=== PATIENT | male | born 1955 | race American Indian/Alaskan Native ===

== ENCOUNTER 2021-01-04 03:02 | Emergency (ER) | payer SELFPAY ==
--- NOTE | 2021-01-04 03:41 | Emergency Department Report ---
HPI - General Chief Complaint: Altered Mental Status Time Seen by Provider: 01/04/21 03:19 - HPI HPI: Room 2 The patient is a 65-year-old male present with a chief complaint of altered mental status. Per EMS the patient's roommate states that he left their home last Monday and came back last night "acting different." There are no specifics given surrounding "acting different" but the patient is very slow to respond during the history. Patient denies pain of any type or shortness of breath. Patient states he had an episode of nausea vomiting yesterday after eating ice cream. The patient acknowledges his roommate told him he was not acting like his normal self but is unable to give any specifics. The patient is oriented x3 but slow to respond ED Past Medical Hx - Past Medical History Previous Medical History?: No Additional medical history: per EMS - Surgical History Past Surgical History?: No Additional Surgical History: per EMS ED Review of Systems ROS: Stated complaint: AMS Other details as noted in HPI Constitutional: no symptoms reported Eyes: denies: eye pain ENT: denies: throat pain Respiratory: denies: shortness of breath Cardiovascular: denies: chest pain Endocrine: no symptoms reported Gastrointestinal: nausea, vomiting. denies: abdominal pain Genitourinary: denies: dysuria Musculoskeletal: denies: back pain Neurological: denies: headache Physical Exam - Physical Exam Vital Signs: Vital Signs 01/04/21 03:21 Temperature 99.1 F Pulse Rate 66 Respiratory 17 Rate Blood Pressure 139/85 [Left] O2 Sat by Pulse 98 Oximetry Physical Exam: GENERAL: The patient is well-developed well-nourished male lying on stretcher slow to respond but not appearing to be in acute distress. [] HEENT: Normocephalic. Atraumatic. Extraocular motions are intact. Patient has moist mucous membranes. Pupils 3 to 2 mm bilaterally NECK: Supple. Trachea midline CHEST/LUNGS: Clear to auscultation. There is no respiratory distress noted. HEART/CARDIOVASCULAR: Regular. There is no tachycardia. There is no gallop rub or murmur. ABDOMEN: Abdomen is soft, nontender. Patient has normal bowel sounds. There is no abdominal distention. SKIN: There is no rash. There is no edema. There is no diaphoresis. NEURO: The patient is awake and oriented but slow to respond. The patient is cooperative. The patient has no focal neurologic deficits. The patient has normal speech. Cranial nerves II through XII grossly intact. MUSCULOSKELETAL: There is no evidence of acute injury. ED Course Vital Signs 01/04/21 03:21 Temperature 99.1 F Pulse Rate 66 Respiratory 17 Rate Blood Pressure 139/85 [Left] O2 Sat by Pulse 98 Oximetry - Consultations Consultation #1: 01/04/21 03:39 Attempted to contact the patient's roommate at [phone] for collateral information however there was no answer. Voicemail was left requesting the roommate to call back Consultation #2: 01/04/21 04:02 Case discussed with neurosurgeon Dr. Obrien- recommends transfer Consultation #3: 01/04/21 04:15 [facility] transfer line called 01/04/21 04:32 Case discussed with [facility] neurosurgeon and neuro home housekeeper-currently no beds available can place patient on wait list. 01/04/21 04:34 [facility] transfer line called-no beds available 01/04/21 04:34 [facility] transfer line called 01/04/21 05:03 Case discussed with [facility] neuro home housekeeper Dr. Wang-we will accept patient in transfer. Recommends keeping systolic blood pressure less than 160 ED Medical Decision Making - Lab Data Result diagrams: 01/04/21 04:06 01/04/21 04:06 Laboratory Tests 01/04/21 01/04/21 01/04/21 04:06 04:06 04:06 WBC 8.9 RBC 5.28 H Hgb 14.9 Hct 45.7 H MCV 87 MCH 28 MCHC 33 RDW 13.2 Plt Count 132 L Lymph % (Auto) 10.4 L Page % (Auto) 5.2 Eos % (Auto) 0.0 Baso % (Auto) 0.1 Lymph # (Auto) 0.9 L Page # (Auto) 0.5 Eos # (Auto) 0.0 Baso # (Auto) 0.0 Seg Neutrophils % 84.3 H Seg Neutrophils # 7.5 PT 13.3 INR 1.03 Sodium 138 Potassium 3.9 Chloride 98.4 Carbon Dioxide 29 Anion Gap 15 BUN 13 Creatinine 0.8 Estimated GFR > 60 BUN/Creatinine Ratio 16 Glucose 114 H Calcium 9.2 Magnesium 1.80 Total Bilirubin 0.60 AST 30 ALT 21 Alkaline Phosphatase 108 Ammonia Total Creatine Kinase 167 CK-MB (CK-2) 3.9 CK-MB (CK-2) Rel Index 2.3 Troponin T < 0.010 Total Protein 8.1 Albumin 4.0 Albumin/Globulin Ratio 1.0 Lipase 38 TSH Free T4 Plasma/Serum Alcohol 01/04/21 01/04/21 01/04/21 04:06 04:06 04:06 WBC RBC Hgb Hct MCV MCH MCHC RDW Plt Count Lymph % (Auto) Page % (Auto) Eos % (Auto) Baso % (Auto) Lymph # (Auto) Page # (Auto) Eos # (Auto) Baso # (Auto) Seg Neutrophils % Seg Neutrophils # PT INR Sodium Potassium Chloride Carbon Dioxide Anion Gap BUN Creatinine Estimated GFR BUN/Creatinine Ratio Glucose Calcium Magnesium Total Bilirubin AST ALT Alkaline Phosphatase Ammonia 22.0 L Total Creatine Kinase CK-MB (CK-2) CK-MB (CK-2) Rel Index Troponin T Total Protein Albumin Albumin/Globulin Ratio Lipase TSH 0.215 L Free T4 1.44 Plasma/Serum Alcohol < 0.01 - EKG Data -: EKG Interpreted by Me EKG shows normal: sinus rhythm Rate: normal - EKG Data When compared to previous EKG there are: previous EKG unavailable Interpretation: other (No ischemic changes seen) - Radiology Data Radiology results: report reviewed (Chest x-ray, CT head), image reviewed (Chest x-ray, CT head) interpreted by me: Chest x-ray-no focal infiltrates, no pneumothorax. [facility] [address] [place] [address] Cat Scan Report Signed Patient: TRANG BACK MR#: [id number] 8 : 1955 Acct:[id number] Age/Sex: 65 / M ADM Date: 01/04/21 Loc: ED Attending Dr: Ordering Physician: AARTI IRWIN MD Date of Service: 01/04/21 Procedure(s): CT head/brain wo con Accession Number(s): [id number] cc: AARTI IRWIN MD CT head without contrast INDICATION : Altered mental status. TECHNIQUE: Axial imaging performed from the skull apex through the skull base without the use of contrast. All CT scans at this location are performed using CT dose reduction for ALARA by means of automated exposure control. COMPARISON: None FINDINGS: Parenchyma/ventricles: Large parenchymal hemorrhage right frontal region measuring 6.2 x 2.8 cm with mild adjacent edema. There is compression of the frontal horn of the right lateral ventricle and 4 mm of uipjz-hu-[id number] shift. A small amount of adjacent subdural blood is present at the right frontal region and the anterior aspect of the falx. Intraventricular blood is also seen at the frontal horn and body of the right lateral ventricle. There is also blood at the occipital horn of the left lateral ventricle and the trigone of the right lateral ventricle. No significant ventricular dilatation. Chronic changes of small vessel ischemia. Soft tissues: Soft tissues including the orbits appear normal. Bones: No acute osseous abnormality. Sinuses: Sinuses and mastoid air cells are clear. IMPRESSION: 1. Large right frontal parenchymal hemorrhage with adjacent edema and compression of the frontal horn of the right lateral ventricle. 2. 4 mm of smtcz-lw-cseq shift anteriorly. 3. Mild subdural blood. 4. Intraventricular hemorrhage. CRITICAL RESULT: Time of Discovery: 3:12 AM Time of Communication: 3:15 AM Licensed Practitioner Receiving Report: Dr. Irwin Read Back Performed: Yes. Signer Name: Luis Goetz MD Signed: 01/04/2021 4:19 AM Workstation Name: [id number] Transcribed By: ES Dictated By: Luis Goetz MD Electronically Authenticated By: Luis Goetz MD Signed Date/Time: 01/04/21418 DD/ 1 TD/TT: [facility] [address] [place] [address] XRay Report Signed Patient: TRANG BACK MR#: [id number] 8 : 1955 Acct:[id number] Age/Sex: 65 / M ADM Date: 01/04/21 Loc: ED Attending Dr: Ordering Physician: AARTI IRWIN MD Date of Service: 01/04/21 Procedure(s): XR chest 1V ap Accession Number(s): [id number] cc: AARTI IRWIN MD Fluoro Time In Minutes: CHEST 1 VIEW 01/04/2021 3:29 AM INDICATION / CLINICAL INFORMATION: Altered mental status. COMPARISON: None available. FINDINGS: SUPPORT DEVICES: None. HEART / MEDIASTINUM: No significant abnormality. LUNGS / PLEURA: No significant pulmonary or pleural abnormality. No pneumothorax. ADDITIONAL FINDINGS: No significant additional findings. IMPRESSION: No acute abnormality. Signer Name: Luis Goetz MD Signed: 01/04/2021 3:57 AM Workstation Name: [id number] Transcribed By: ES Dictated By: Luis Goetz MD Electronically Authenticated By: Luis Goetz MD Signed Date/Time: 01/04/21356 DD/ 6 TD/TT: - Differential Diagnosis Altered mental status, electrolyte abnormality, hepatic encephalopathy, hyp Critical Care Time: Yes Critical care time in (mins) excluding proc time.: 30 Critical care attestation.: If time is entered above; I have spent that time in minutes in the direct care of this critically ill patient, excluding procedure time. ED Disposition Clinical Impression: Intracranial hemorrhage, Altered mental status Disposition: DC/TX-70 ANOTHER TYPE HLTHCARE Is pt being admited?: No Does the pt Need Aspirin: No Condition: Serious Time of Disposition: : (Awaiting transport)
[2021-01-04] MEDS ORDERED: levETIRAcetam 1000 MG/NS 0.75% 1,000 MG/100 ML BAG IV ONE (03:55)
--- NOTE | 2021-01-04 04:01 | XRay Report ---
CHEST 1 VIEW 01/04/2021 3:29 AM INDICATION / CLINICAL INFORMATION: Altered mental status. COMPARISON: None available. FINDINGS: SUPPORT DEVICES: None. HEART / MEDIASTINUM: No significant abnormality. LUNGS / PLEURA: No significant pulmonary or pleural abnormality. No pneumothorax. ADDITIONAL FINDINGS: No significant additional findings. IMPRESSION: No acute abnormality. Signer Name: Luis Goetz MD Signed: 01/04/2021 3:57 AM Workstation Name: [id number]
--- NOTE | 2021-01-04 04:24 | Cat Scan Report ---
CT head without contrast INDICATION : Altered mental status. TECHNIQUE: Axial imaging performed from the skull apex through the skull base without the use of con trast. All CT scans at this location are performed using CT dose reduction for ALARA by means of aut omated exposure control. COMPARISON: None FINDINGS: Parenchyma/ventricles: Large parenchymal hemorrhage right frontal region measuring 6.2 x 2.8 cm with mild adjacent edema. There is compression of the frontal horn of the right lateral ventricle and 4 mm of oojvn-xh-fpfm shift. A small amount of adjacent subdural blood is present at the right frontal re gion and the anterior aspect of the falx. Intraventricular blood is also seen at the frontal horn and body of the right lateral ventricle. There is also blood at the occipital horn of the left lateral v entricle and the trigone of the right lateral ventricle. No significant ventricular dilatation. Chronic changes of small vessel ischemia. Soft tissues: Soft tissues including the orbits appear normal. Bones: No acute osseous abnormality. Sinuses: Sinuses and mastoid air cells are clear. IMPRESSION: 1. Large right frontal parenchymal hemorrhage with adjacent edema and compression of the frontal horn of the right lateral ventricle. 2. 4 mm of zplgu-xl-mdek shift anteriorly. 3. Mild subdural blood. 4. Intraventricular hemorrhage. CRITICAL RESULT: Time of Discovery: 3:12 AM Time of Communication: 3:15 AM Licensed Practitioner Receiving Report: Dr. Gil Read Back Performed: Yes. Signer Name: Luis Goetz MD Signed: 01/04/2021 4:19 AM Workstation Name: [id number]
[2021-01-04 04:35] LABS: Basophils % (Auto) 0.1 % (0.0-1.8); Hematocrit 45.7 % (35.5-45.6); Hemoglobin 14.9 gm/dl (11.8-15.2); Lymphocytes # (Auto) 0.9 K/mm3 (1.2-5.4); Lymphocytes % (Auto) 10.4 % (13.4-35.0); Mean Corpuscular HGB Conc 33 % (32-34); Mean Corpuscular Volume 87 fl (84-94); Monocytes # (Auto) 0.5 K/mm3 (0.0-0.8); Monocytes % (Auto) 5.2 % (0.0-7.3); Platelet Count 132 K/mm3 (140-440); Red Blood Count 5.28 M/mm3 (3.65-5.03); Red Cell Distribution Width 13.2 % (13.2-15.2)
[2021-01-04 05:02] LABS: INR 1.03 (0.87-1.13)
[2021-01-04 05:08] LABS: Alanine Aminotransferase 21 units/L (7-56); BUN/Creatinine Ratio 16; Blood Urea Nitrogen 13 mg/dL (9-20); Calcium 9.2 mg/dL (8.4-10.2); Creatine Kinase MB 3.9 ng/mL (0.0-4.0); Hemolysis Index 3
[2021-01-04 05:18] LABS: Free T4 (Free Thyroxine) 1.44 ng/dL (0.76-1.46)
[2021-01-04 06:12] LABS: Bacteria,Urine 1+ /HPF (Negative); Bilirubin,Urine NEG (Negative); Blood,Urine SM (Negative); Color,Urine Yellow (Yellow); Mucus,Urine FEW /HPF; Protein,Urine <15 mg/dL mg/dL (Negative); Urobilinogen,Urine < 2.0 mg/dL (<2.0)
[2021-01-04 06:14] LABS: Amphetamine Screen,Urine PRESUMPTIVE NEGATIVE; Benzodiazepines Screen,Urine PRESUMPTIVE NEGATIVE; Cannabinoid Screen,Urine PRESUMPTIVE NEGATIVE; Cocaine Screen,Urine PRESUMPTIVE NEGATIVE; Methadone Screen,Urine PRESUMPTIVE NEGATIVE; Opiate Screen,Urine PRESUMPTIVE NEGATIVE
[2021-01-04 06:54] VITALS: BP 146/86
--- NOTE | 2021-01-07 11:31 | Electrocardiograph Report ---
[facility] Test Date: 2021-01-04 Test Time: 03:27:19 Pat Name: TRANG JASSO Department: Room: Gender: M Observatory Director: RACHEL : 1955 Requested By: AARTI IRWIN Order Number: [id number] Reading MD: Coral Bowen Measurements Intervals [place] Rate: 62 P: 63 AR: 171 QRS: 45 QRSD: 81 T: 47 QT: 399 QTc: 406 Interpretive Statements Sinus rhythm No previous ECG available for comparison Electronically Signed On 01-07-2021 11:30:54 EDT by Coral Bowen
== END 2021-01-04 06:55 | disposition other institution (70) ==
LOC: ED 03:02
DX: I62.9 Nontraumatic intracranial hemorrhage, unspecified (principal); R41.82 Altered mental status, unspecified
CPT/HCPCS: 36415; 70450; 71045; 80053; 80307; 81001; 82140; 82550; 82553; 83690; 83735; 84439; 84443; 84484; 85025; 85610; 93005; 96365; 99291; J1953; 80320; G0480